=== PATIENT | female | born 1985 | race Asian ===

== ENCOUNTER 2020-04-01 08:46 | Outpatient (AMBR) | payer MEDICAID, SELFPAY ==
--- NOTE | 2020-04-01 11:27 | PTNOTE_ITS ---
PT Outpatient Daily Note Date of Service: 04/01/20 OP Daily Note Visit Reasons: NECK PAIN Outpatient Physical Therapy Treatment Date: 04/01/20 Subjective: The neck feels about the same as last time. She was working in [employer] and returned for therapy today. Objective: See F/S for therex MT: STM C/S paraspinals, manual distraction x7' Assessment: Moderate tissue irritability with cervical rotation B. Pt has moderate TTP of C/S paraspinals diffusely. Plan: Continue per POC Length of Time (minutes) of Treatment: 30 Minutes Office Procedures PT Procedures PT Date of Service: 04/01/20 Therapeutic Exercise 30 minutes: Yes
== END 2020-04-16 23:59 | disposition home or self-care (01) ==
PROVIDERS: PCP Physician Assistant Medical; Referring Provider Physician Assistant Medical; Visit Provider Physician Assistant Medical
DX: M54.2 Cervicalgia (principal)
CPT/HCPCS: 97110